=== PATIENT | male | born 1995 | race African-American/Black ===

== ENCOUNTER 2021-12-27 22:22 | Emergency (ER) | payer SELFPAY ==
[2021-12-27 23:50] LABS: Absolute Lymphocytes (CBC) 1.1 K/uL (0.7-4.9); Hematocrit 41.3 % (39.6-49.0); Lymphocytes % 18.3 % (15.3-44.8); RBC Red Blood Cell Count 5.19 M/uL (4.33-5.43)
[2021-12-27] MEDS ORDERED: MAGNES/ALUMIN/SIMET 30ML UCUP ONE (23:56)
[2021-12-27] MEDS ORDERED: NA CHLORIDE 0.9% 1,000 ML ONE (23:56)
[2021-12-27] MEDS ORDERED: FAMOTIDINE 20 MG/2 ML VIAL IV ONE (23:56)
[2021-12-27] MEDS ORDERED: LIDOCAINE VISCOUS 2% SOLN 15 ML UDC ONE (23:56)
[2021-12-28 00:01] LABS: Albumin 3.9 g/dL (3.4-5.0); Bilirubin Total 0.3 mg/dL (0.2-1.0); Potassium 3.3 mmol/L (3.5-5.1); Protein, Total 8.3 g/dL (6.4-8.2)
[2021-12-28] MEDS ORDERED: ONDANSETRON 4 MG/2 ML VIAL ONE ×2 (00:09→01:58)
[2021-12-28] MEDS ORDERED: MORPHINE 4 MG/ML SYR ONE (01:58)
--- NOTE | 2021-12-28 02:34 | ER ---
Nurse's Notes [facility] Name: Jaswinder Edwards Age: 26 yrs Sex: Male : 1995 Arrival Date: 12/27/2021 Time: 22:26 Bed 6 Private MD: Diagnosis: Abdominal pain, unspecified Presentation: 12/27 22:52 Chief complaint: Patient states: Severe epigastric pain that has been ongoing for the lp1 past few months; Denies n/v, diarrhea, constipation, fever. Coronavirus screen: At this time, the client does not indicate any symptoms associated with coronavirus-19. Ebola Screen: No symptoms or risks identified at this time. Risk Assessment: Do you want to hurt yourself or someone else? Patient reports no desire to harm self or others. Onset of symptoms was December 27, 2021. 22:52 Method Of Arrival: Ambulatory lp1 22:52 Acuity: MICKEY 3 lp1 22:54 Initial Sepsis Screen: Does the patient meet any 2 criteria? No. Patient's initial lp1 sepsis screen is negative. Does the patient have a suspected source of infection? No. Patient's initial sepsis screen is negative. Historical: - Allergies: 22:53 No Known Allergies; lp1 - Home Meds: 22:53 None [Active]; lp1 - PMHx: 22:53 None; lp1 - PSHx: 22:53 None; lp1 - Immunization history:: Adult Immunizations up to date, Client reports receiving the 1st dose of the Covid vaccine. - Social history:: Smoking status: Patient denies any tobacco usage or history of. Patient uses alcohol, occasionally. Screenin/10 03:40 Abuse screen: Denies threats or abuse. Denies injuries from another. Nutritional lg3 screening: No deficits noted. Tuberculosis screening: No symptoms or risk factors identified. Fall Risk None identified. Assessment: 12/27 23:36 General: Appears in no apparent distress. uncomfortable, Behavior is calm, cooperative, al4 patient c/o stomach pain that feels "numb" that has been going on for > 5 months . Pain: Complains of pain in abdomen Quality of pain is described as numb. Neuro: Level of Consciousness is awake, alert, obeys commands, Oriented to person, place, time, situation. Cardiovascular: Patient's skin is warm and dry. Respiratory: Airway is patent Respiratory effort is unlabored, Respiratory pattern is regular. GI: Bowel sounds present X 4 quads. Abdomen is tender to palpation in right upper quadrant and left upper quadrant Patient currently denies constipation, diarrhea, nausea. 12/28 00:06 General: administered GI coctail ordered by provider. PT began vomiting large amount of lg3 stomach contents shortly after. notified provider. . 00:15 Reassessment: notified provider that patient refused zofran. patient states "I think it al4 was the medicine, it just hit my stomach wrong. Im not nauseous.". 00:32 Reassessment: Patient states he vomited x [address] RN offered zofran again, al4 and patient refused "I am really not nauseous." RN educated patient on medication, but patient continued to refuse. 02:15 Reassessment: Patient appears in no apparent distress at this time. Patient is alert, al4 oriented x 3, equal unlabored respirations, skin warm/dry/pink. Patient states symptoms have not improved. 03:39 Reassessment: Patient appears in no apparent distress at this time. No changes from lg3 previously documented assessment. Patient and/or family updated on plan of care and expected duration. Pain level reassessed. Patient is alert, oriented x 3, equal unlabored respirations, skin warm/dry/pink. Patient states feeling better. Patient states symptoms have improved. Vital Signs: 12/27 22:54 BP 126 / 86; Pulse 73; Resp 18; Temp 98.1(O); Pulse Ox 100% on R/A; Weight 108.41 kg lp1 (R); Height 5 ft. 7 in. (170.18 cm); Pain 5/10; 23:37 BP 127 / 77; Pulse 85; Resp 14 S; Temp 98.8(O); Pulse Ox 100% on R/A; al4 12/28 00:26 BP 134 / 77; Pulse 81; Resp 16; Pulse Ox 100% on R/A; al4 02:15 BP 119 / 98; Pulse 79; Resp 16 S; Pulse Ox 100% on R/A; al4 03:40 BP 127 / 76; Pulse 78; Resp 17 S; Pulse Ox 100% on R/A; lg3 12/27 22:54 Body Mass Index 37.43 (108.41 kg, 170.18 cm) lp1 ED Course: 12/27 22:26 Patient arrived in ED. bp1 22:37 [facility]ritchard [facility] jh7 22:37 Osmar Estrada MD is Attending Physician. jh7 22:52 Arm band placed on. lp1 22:53 Triage completed. lp1 23:08 Taya Lema, RN is Primary Nurse. lg3 23:35 Inserted saline lock: 20 gauge in left antecubital area, using aseptic technique. al4 ,using aseptic technique. by Taya Dominguez RN Blood collected. 23:39 CBC with Diff Sent. lg3 23:39 CMP Sent. lg3 23:39 Lipase Sent. lg3 12/28 00:31 CT Abd/Pelvis - IV Contrast Only In Process Unspecified. EDMS 02:33 George Boles MD is Referral Physician. jh7 03:40 Patient has correct armband on for positive identification. Placed in gown. Bed in low lg3 position. Call light in reach. Side rails up X2. Client placed on continuous cardiac and pulse oximetry monitoring. NIBP monitoring applied. Door closed. Noise minimized. Warm blanket given. 03:41 No provider procedures requiring assistance completed. IV discontinued, intact, lg3 bleeding controlled, No redness/swelling at site. Pressure dressing applied. Administered Medications: 12/27 23:54 Drug: GI Cocktail without - (Maalox Suspension 30 ml, Lidocaine Liquid 2 % 15 lg3 ml) Route: PO; 23:55 Follow up: Response: No adverse reaction lg3 23:55 Drug: NS 0.9% 1000 ml Route: IV; Rate: 1 bolus; Site: left antecubital; lg3 12/28 03:18 Follow up: Response: No adverse reaction; IV Status: Completed infusion; IV Intake: lg3 1000ml 12/27 23:55 Drug: Pepcid (famotidine) 20 mg Route: IVP; Site: left antecubital; lg3 23:55 Follow up: Response: No adverse reaction 3 12/28 00:14 Not Given (Patient Refused): Zofran (Ondansetron) 4 mg IVP once; over 2 minutes al4 02:17 Drug: Zofran (Ondansetron) 4 mg Route: IVP; Site: left antecubital; al4 03:18 Follow up: Response: No adverse reaction lg3 02:19 Drug: morphine 4 mg Route: IVP; Site: left antecubital; al4 03:18 Follow up: Response: No adverse reaction lg3 03:13 CANCELLED (Physician Discretion): Potassium Chloride 40 mEq PO once jh7 03:19 Drug: Potassium Effervescent Tablet 50 mEq Route: PO; lg3 03:20 Follow up: Response: No adverse reaction lg3 Intake: 03:18 IV: 1000ml; Total: 1000ml. lg3 Output: 00:14 Gastric: 600ml (Emesis); Total: 600ml. al4 Outcome: 02:34 Discharge ordered by . jh7 03:41 Discharged to home ambulatory, with family. lg3 03:41 Condition: stable 03:41 Discharge instructions given to patient, Instructed on discharge instructions, follow up and referral plans. medication usage, Demonstrated understanding of instructions, follow-up care, medications, Prescriptions given X 1. 03:42 Patient left the ED. lg3 Signatures: Dispatcher [employer] EDMS Majo Fernandez, RN RN lp1 Taya Lema, GERI RN lg3 Gladis Smalls Alexis al4 Melani Pritchard FNP DRY PAN OPERATOR [facility] Corrections: (The following items were deleted from the chart) 12/27 22:56 22:54 Temp 98.1F Oral; 108.41 kg Reported; Height 5 ft. 7 in.; BMI: 37.4; Pain 5/10; lp1lp1 12/28 00:14 00:07 Zofran (Ondansetron) 4 mg IVP in left antecubital lg3 al4 00:15 12/27 23:36 GI: Patient currently denies constipation, diarrhea, nausea, al4 al4
--- NOTE | 2021-12-28 02:34 | EDPHYS ---
Physician Documentation [facility] Name: Jaswinder Edwards Age: 26 yrs Sex: Male : 1995 Arrival Date: 12/27/2021 Time: 22:26 Bed 6 Private MD: ED Physician Osmar Estrada HPI: 12/27 22:55 This 26 yrs old Black Male presents to ER via Ambulatory with complaints of Abdominal jh7 Pain. 22:55 The patient presents with abdominal pain in the epigastric area. Onset: The jh7 symptoms/episode began/occurred 1 month(s) ago. Patient reports epigastric pain for 1 month. States that the pain worsened today. Denies nausea, vomiting, diarrhea, and fever.. Historical: - Allergies: 22:53 No Known Allergies; lp1 - Home Meds: 22:53 None [Active]; lp1 - PMHx: 22:53 None; lp1 - PSHx: 22:53 None; lp1 - Immunization history:: Adult Immunizations up to date, Client reports receiving the 1st dose of the Covid vaccine. - Social history:: Smoking status: Patient denies any tobacco usage or history of. Patient uses alcohol, occasionally. ROS: 22:55 Constitutional: Negative for fever, chills, and weight loss, Cardiovascular: Negative jh7 for chest pain, palpitations, and edema, Respiratory: Negative for shortness of breath, cough, wheezing, and pleuritic chest pain, Back: Negative for injury and pain, Skin: Negative for injury, rash, and discoloration, Neuro: Negative for headache, weakness, numbness, tingling, and seizure. 22:55 Abdomen/GI: Positive for abdominal pain, Negative for nausea, vomiting, and diarrhea, constipation, black/tarry stool. 22:55 All other systems are negative. Exam: 22:55 Constitutional: This is a well developed, well nourished patient who is awake, alert, jh7 and in no acute distress. Neck: Trachea midline, no thyromegaly or masses palpated, and no cervical lymphadenopathy. Supple, full range of motion without nuchal rigidity, or vertebral point tenderness. No Meningismus. Cardiovascular: Regular rate and rhythm with a normal S1 and S2. No gallops, murmurs, or rubs. Normal PMI, no JVD. No pulse deficits. Respiratory: Lungs have equal breath sounds bilaterally, clear to auscultation and percussion. No rales, rhonchi or wheezes noted. No increased work of breathing, no retractions or nasal flaring. Back: No spinal tenderness. No costovertebral tenderness. Full range of motion. Skin: Warm, dry with normal turgor. Normal color with no rashes, no lesions, and no evidence of cellulitis. Neuro: Awake and alert, GCS 15, oriented to person, place, time, and situation. Normal gait. 22:55 Abdomen/GI: Inspection: abdomen appears normal, Bowel sounds: normal, Palpation: soft, mild abdominal tenderness, in the epigastric area. Vital Signs: 22:54 BP 126 / 86; Pulse 73; Resp 18; Temp 98.1(O); Pulse Ox 100% on R/A; Weight 108.41 kg lp1 (R); Height 5 ft. 7 in. (170.18 cm); Pain 5/10; 23:37 BP 127 / 77; Pulse 85; Resp 14 S; Temp 98.8(O); Pulse Ox 100% on R/A; al4 12/28 00:26 BP 134 / 77; Pulse 81; Resp 16; Pulse Ox 100% on R/A; al4 02:15 BP 119 / 98; Pulse 79; Resp 16 S; Pulse Ox 100% on R/A; al4 03:40 BP 127 / 76; Pulse 78; Resp 17 S; Pulse Ox 100% on R/A; lg3 12/27 22:54 Body Mass Index 37.43 (108.41 kg, 170.18 cm) lp1 MDM: 12/27 23:02 Patient medically screened. jh7 12/28 02:43 Differential diagnosis: gastritis, gastroesophageal reflux disease, GI Bleed, Peptic jh7 Ulcer Disease. Data reviewed: vital signs, nurses notes, lab test result(s), radiologic studies, CT scan. Data interpreted: Pulse oximetry: is 100 %. Interpretation: normal. Counseling: I had a detailed discussion with the patient and/or guardian regarding: the historical points, exam findings, and any diagnostic results supporting the discharge/admit diagnosis, the need for outpatient follow up, a general surgeon. Counseling: I had a detailed discussion with the patient and/or guardian regarding: to return to the emergency department if symptoms worsen or persist or if there are any questions or concerns that arise at home. ED course: The patient symptoms improved after medication therapy. He remained hemodynamically stable throughout the ER visit. Labs were unremarkable, and his potassium was treated in the ER. Informed him that his CAT scan showed possible sludge in his gallbladder without cholecystitis. Advised him to follow-up with general surgery. If his symptoms return or he develops any new concerning symptoms, return to the ER for further care. Patient understood the plan of care.. 12/27 23:08 Order name: CBC with Diff; Complete Time: 00:06 [facility] 12/27 23:08 Order name: CMP; Complete Time: 00:06 [facility] 12/27 23:08 Order name: Lipase; Complete Time: 00:06 [facility] 12/27 23:08 Order name: Urine Microscopic Only; Complete Time: 03:12 [facility] 12/27 23:08 Order name: CT Abd/Pelvis - IV Contrast Only [facility] 12/27 23:08 Order name: IV Saline Lock; Complete Time: 23:39 [facility] 12/27 23:08 Order name: Labs collected and sent; Complete Time: 23:39 [facility] Administered Medications: 12/27 23:54 Drug: GI Cocktail without - (Maalox Suspension 30 ml, Lidocaine Liquid 2 % 15 lg3 ml) Route: PO; 23:55 Follow up: Response: No adverse reaction lg3 23:55 Drug: NS 0.9% 1000 ml Route: IV; Rate: 1 bolus; Site: left antecubital; 3 12/28 03:18 Follow up: Response: No adverse reaction; IV Status: Completed infusion; IV Intake: lg3 1000ml 12/27 23:55 Drug: Pepcid (famotidine) 20 mg Route: IVP; Site: left antecubital; lg3 23:55 Follow up: Response: No adverse reaction [facility] 12/28 00:14 Not Given (Patient Refused): Zofran (Ondansetron) 4 mg IVP once; over 2 minutes al4 02:17 Drug: Zofran (Ondansetron) 4 mg Route: IVP; Site: left antecubital; al4 03:18 Follow up: Response: No adverse reaction lg3 02:19 Drug: morphine 4 mg Route: IVP; Site: left antecubital; al4 03:18 Follow up: Response: No adverse reaction lg3 03:13 CANCELLED (Physician Discretion): Potassium Chloride 40 mEq PO once 7 03:19 Drug: Potassium Effervescent Tablet 50 mEq Route: PO; lg3 03:20 Follow up: Response: No adverse reaction lg3 Disposition: 04:24 Co-signature as Attending Physician, Osmar Estrada MD. rn Disposition Summary: 12/28/21 02:34 Discharge Ordered Location: Home [facility] Problem: new [facility] Symptoms: have improved [facility] Condition: Stable [facility] Diagnosis - Abdominal pain, unspecified [facility] Followup: [facility] - With: George Boles MD - When: 2 - 3 days - Reason: Recheck today's complaints Discharge Instructions: - Discharge Summary Sheet [facility] - Abdominal Pain, Adult [facility] Forms: - Medication Reconciliation Form [facility] - Thank You Letter [facility] - Antibiotic Education [facility] Prescriptions: - ondansetron 4 mg Oral tablet,disintegrating - place 1 tablet by TRANSLINGUAL route 4 times per day; 20 tablet; Refills: 0, [facility] Product Selection Permitted Signatures: Dispatcher [employer] Osmar Weinstein MD MD rn Pena, Laura, RN RN lp1 Taya Lema RN RN lg3 Dale Betts al4 Melani Pritchard FNP DRESSER TENDER [facility] Corrections: (The following items were deleted from the chart) 03:13 02:30 Potassium Chloride 40 mEq PO once ordered. [place] [id number]
[2021-12-28 03:02] LABS: Urine Bacteria <20 /HPF (NONE SEEN); Urine RBC NONE SEEN /HPF (NONE SEEN)
[2021-12-28] MEDS ORDERED: POTASSIUM 25 MEQ EFFERV TAB ONE (03:18)
[2021-12-28 05:24] VITALS: O2SAT 100
[2021-12-28 05:26] VITALS: TEMP 98.8
[2021-12-28 05:33] VITALS: BP 127/76
--- NOTE | 2021-12-28 13:57 | RAD REPORT ---
EXAM DESCRIPTION: CT - Abdomen Pelvis W Contrast - 12/28/2021 6:34 am CLINICAL HISTORY: 26 years, Male, Epigastric pain COMPARISON: None. TECHNIQUE: Contrast-enhanced images of the abdomen and pelvis were performed utilizing 5 mm slice th ickness at 5 mm interval reconstruction from the lung bases to the ischial tuberosities after the adm inistration IV contrast. In addition multiplanar reformats in the coronal and sagittal plane were obtained and reviewed. This exam was performed according to our departmental dose-optimization protocol, which includes auto mated exposure control, adjustment of the mA and/or kV according to patient size and/or use of iterat jen reconstruction technique. FINDINGS: Some of the images are compromised by breathing motion artifact limiting diagnostic value. The lung bases demonstrate to be clear. The liver, pancreas, spleen and adrenal glands demonstrate to be unremarkable, no focal lesions are n oted. Minimal increase density within the fundus of the gallbladder could correspond to sludge and/or gravel-cholelithiasis. There is no evidence biliary duct dilatation. The kidneys demonstrate normal uptake of contrast media. No evidence for nephrolithiasis and/or hydro nephrosis. Grossly the unopacified stomach, small bowel and large bowel demonstrate to be within normal limits. There is no evidence for bowel dilatation/or free air. The appendix is normal. The left site colo n is decompressed. The urinary bladder demonstrate to be unremarkable. The prostate gland is normal. The aorta demon strate to be normal. There is no retroperitoneal lymphadenopathy. There is no ascites. The rest of the soft tissue and bony structures are within normal limits. IMPRESSION: No acute intra-abdominal pathology. Minimal increase density within the fundus of the gallbladder could correspond to sludge and/or grave l-cholelithiasis. Electronically signed by: Gavin Vallecillo MD 12/28/2021 12:53 AM CDT Due to temporary technical issues with the PACS/Fluency reporting system, reports are being signed by the in house radiologists without review as a courtesy to insure prompt reporting. The interpreting radiologist is fully responsible for the content of the report.
== END 2021-12-28 03:42 | disposition home or self-care (01) ==
LOC: ER 22:22
DX: R10.13 Epigastric pain (principal)
CPT/HCPCS: 36415; 74177; 80053; 81015; 83690; 85025; 96361; 96374; 96375; 99284; J2405; J3490; J7030; Q9967